=== PATIENT | male | born 1990 | race African-American/Black ===

== ENCOUNTER 2016-11-17 18:53 | Emergency (ER) | payer BC ==
[2016-11-17 18:59] VITALS: BP 164/95
[2016-11-17] MEDS ORDERED: CEPHALEXIN 500 MG CAPSULE PO ONE (20:54)
[2016-11-17] MEDS ORDERED: METHYLPREDNISOLONE INJ 125 MG/2 ML SDV IM ONE (20:54)
--- NOTE | 2016-11-17 20:58 | ER Document Report ---
ED Allergic Reaction - General Chief Complaint: Allergic Reaction Stated Complaint: ALLERGIC REACTION Time Seen by Provider: 11/17/16 20:48 Mode of Arrival: Ambulatory Information source: Patient Notes: Patient is a 26-year-old -[place] male who presents to the ER today for 3 days of possible allergic reaction after using Casas on his face for hair removal. Patient states that since that time it has been itchy, painful with red bumps, and occasional pus drainage from the bumps. He denies any fever, chills, trouble breathing, swelling anywhere. TRAVEL OUTSIDE OF THE [place] IN LAST 30 DAYS: No - Related Data Allergies/Adverse Reactions: lucinactant [From [employer]fax[place]] Allergy (Verified 11/17/16 18:57) Past Medical History - General Information source: Patient - Social History Smoking Status: Never Smoker Family History: Reviewed & Not Pertinent Patient has suicidal ideation: No Patient has homicidal ideation: No Renal/ Medical History: Denies: Hx Peritoneal Dialysis Review of Systems - Review of Systems Constitutional: No symptoms reported EENT: No symptoms reported Cardiovascular: No symptoms reported Respiratory: No symptoms reported Gastrointestinal: No symptoms reported Genitourinary: No symptoms reported Male Genitourinary: No symptoms reported Musculoskeletal: No symptoms reported Skin: See HPI Hematologic/Lymphatic: No symptoms reported Neurological/Psychological: No symptoms reported Physical Exam - Vital signs Vitals: Temp Pulse Resp BP Pulse Ox 98.3 F 78 20 164/95 H 99 11/17/16 18:58 11/17/16 18:58 11/17/16 18:58 11/17/16 18:58 11/17/16 18:58 - Notes Notes: PHYSICAL EXAMINATION: GENERAL: Well-appearing and in no acute distress. HEAD: Atraumatic, normocephalic. EYES: Pupils equal round and reactive to light, extraocular movements intact, sclera anicteric, conjunctiva are normal. NECK: Normal range of motion, supple without lymphadenopathy LUNGS: CTAB and equal. No wheezes rales or rhonchi. HEART: Regular rate and rhythm without murmurs EXTREMITIES: Normal range of motion, no pitting edema. No cyanosis. NEUROLOGICAL: Cranial nerves grossly intact. Normal sensory/motor exams. PSYCH: Normal mood, normal affect. SKIN: Warm, Dry, normal turgor, infected papules with erythema and slight pus drainage from chin and neck, slight erythema to area, excoriation present Course - Vital Signs Vital signs: Temp Pulse Resp BP Pulse Ox 98.3 F 78 20 164/95 H 99 11/17/16 18:58 11/17/16 18:58 11/17/16 18:58 11/17/16 18:58 11/17/16 18:58 Discharge - Discharge Clinical Impression: Rash and nonspecific skin eruption, infected papules Condition: Stable Disposition: HOME, SELF-CARE Additional Instructions: Take entire course of antibiotic, even if the skin looks better before he finished. Return immediately for any new or worsening symptoms. Follow up with primary care provider, call tomorrow to make followup appointment. Prescriptions: Cephalexin Monohydrate [Keflex 500 mg Capsule] 500 mg PO BID #14 capsule
== END 2016-11-17 21:17 | disposition home or self-care (01) ==
LOC: ER 18:53
DX: L08.89 Other specified local infections of the skin and subcutaneous tissue (principal); R21 Rash and other nonspecific skin eruption; T78.40XA Allergy, unspecified, initial encounter
CPT/HCPCS: 99283; 96372; J2930

== ENCOUNTER 2016-12-06 22:13 | Emergency (ER) | payer BC ==
--- NOTE | 2016-12-07 01:44 | ER Document Report ---
HPI - HPI Patient complains to provider of: Groin rash Onset: Other - Intermittent for months Onset/Duration: Intermittent, Persistent Quality of pain: No pain Severity: None Pain Level: Denies Context: 26-year-old male complained about a intermittent inguinal fold groin rash with white skin discoloration. Topical antifungals have improved in the past and his mother states that the color did return. He is concerned about why the rash continues to recur and worried that the skin color is different. Denies any other rashes fevers or medical illness. Associated Symptoms: denies: None Exacerbated by: Other - Getting hot and sweating at work Relieved by: Denies - ROS ROS below otherwise negative: Yes Systems Reviewed and Negative: Yes All other systems reviewed and negative - CARDIOVASCULAR Cardiovascular: DENIES: Chest pain Past Medical History - General Information source: Patient, Parent - Social History Smoking Status: Never Smoker Frequency of alcohol use: None Drug Abuse: None Lives with: Parents Family History: Reviewed & Not Pertinent - Medical History Medical History: Negative Renal/ Medical History: Denies: Hx Peritoneal Dialysis Surgical Hx: Negative Vertical Provider Document - CONSTITUTIONAL Agree With Documented VS: Yes Exam Limitations: No Limitations General Appearance: No Apparent Distress - INFECTION CONTROL TRAVEL OUTSIDE OF THE [place] IN LAST 30 DAYS: No - HEENT HEENT: Normal ENT Exam Notes: No oral lesions or thrush - NECK Neck: Supple - RESPIRATORY Respiratory: Breath Sounds Normal, No Respiratory Distress O2 Sat by Pulse Oximetry: 98 - CARDIOVASCULAR Cardiovascular: Regular Rate, Regular Rhythm - REPRODUCTIVE Notes: Bilateral inguinal folds rash which is deep pigmented. No adenopathy. Suspicious for tinea. - NEURO Level of Consciousness: Awake, Alert - DERM Integumentary: Warm, Dry, Rash - See above Course - Vital Signs Vital signs: Temp Pulse Resp BP Pulse Ox 97.9 F 73 18 144/87 H 98 12/06/16 22:19 12/06/16 22:19 12/06/16 22:19 12/06/16 22:19 12/06/16 22:19 Discharge - Discharge Clinical Impression: Tinea Condition: Good Disposition: HOME, SELF-CARE Instructions: Skin Fungus ([facility]), Topical Antifungal ([facility]) Additional Instructions: keep dry in groin antifungal cream three times per day, after resolved, use once a day to prevent reoccurance see motion picture camera operator if persists Prescriptions: Nystatin 30 gm TP TID #1 cream..g. Forms: Return to Work Referrals: KALYI CONTRERAS, [ACTIVE STAFF] - Follow up as needed
[2016-12-07 01:47] VITALS: BP 146/82
== END 2016-12-07 01:50 | disposition home or self-care (01) ==
LOC: ER 22:13
DX: B35.9 Dermatophytosis, unspecified (principal)
CPT/HCPCS: 99282